=== PATIENT | male | born 1980 | race Caucasian/White ===

== ENCOUNTER 2021-03-01 20:08 | Emergency (ER) | payer BC, OTHER ==
[2021-03-01 20:32] VITALS: BP 156/97; PULSE 85
--- NOTE | 2021-03-01 21:07 | EDM.PDOC ---
ED HPI GENERAL MEDICAL PROBLEM - General Chief Complaint: Lower Extremity Injury/Pain Stated Complaint: LT KNEE PAIN Time Seen by Provider: 03/01/21 20:24 Source of Information: Reports: Patient, RN Notes Reviewed History Limitations: Reports: No Limitations - History of Present Illness INITIAL COMMENTS - FREE TEXT/NARRATIVE: Patient is a 40-year-old male who presents to the ER for the evaluation of his left knee pain/swelling. Notes that he was sitting on a fence, and he jumped down off of the fence 1 week ago, and his left knee kind of buckled underneath of him. He was seen at the [facility] after the accident, he had no imaging done of the knee, but they did provide him with an elastic knee sleeve, told him to try some conservative measures, and if things seem to worsen to go to the ER for evaluation. He does note that the swelling has gotten worse, he notes that walking on it at all is very painful. He has been trying Tylenol ibuprofen at home and nothing really seems to be helping much. He is denying any numbness or tingling distal to the injury or any pain further up from the injury. Patient denies any other sick-like symptoms, fever/chills, cough/shortness of breath, nausea/vomiting/diarrhea. Left Knee Pain Score (Numeric/FACES): 6 - Related Data Allergies Allergy/AdvReac Type Severity Reaction Status Date / Time No Known Allergies Allergy Verified 04/08/14 14:56 Home Meds: Home Meds Allopurinol [Zyloprim] 300 mg PO DAILY 03/01/21 [History] Hydrocodone/Acetaminophen [Hydrocodone-Acetamin 5-325 mg] 1 each PO Q6H PRN #12 tablet 03/01/21 [Rx] Propranolol [Inderal] 20 mg PO DAILY 03/01/21 [History] Past Medical History Cardiovascular History: Reports: Hypertension Musculoskeletal History: Reports: Back Pain, Chronic, Gout Neurological History: Reports: Migraines, Other (See Below) Other Neuro History: TBI-fractured skull Psychiatric History: Reports: PTSD Dermatologic History: Reports: Eczema Social & Family History - Tobacco Use Tobacco Use Status *Q: Current Every Day Tobacco User Years of Tobacco use: 26 Packs/Tins Daily: 1 - Caffeine Use Caffeine Use: Reports: Coffee, Tea - Recreational Drug Use Recreational Drug Use: Yes Other Recreational Drug Type: medical marijuan card Review of Systems - Review of Systems Review Of Systems: Comprehensive ROS is negative, except as noted in HPI. ED EXAM, GENERAL - Physical Exam Exam: See Below Exam Limited By: No Limitations General Appearance: Alert, WD/WN, No Apparent Distress Respiratory/Chest: No Respiratory Distress, Lungs Clear, Normal Breath Sounds, No Accessory Muscle Use, Chest Non-Tender Cardiovascular: Normal Peripheral Pulses, Regular Rate, Rhythm, No Edema Peripheral Pulses: 2+: Dorsalis Pedis (L), Dorsalis Pedis (R) Extremities: Normal Capillary Refill, Joint Swelling (left knee swelling, pt states that this hurts more on the lateral sides), Limited Range of Motion (of left knee d/t pain). No: Increased Warmth Neurological: Alert, Oriented, Normal Cognition, No Motor/Sensory Deficits Psychiatric: Normal Affect, Normal Mood Skin Exam: Warm, Dry, Intact, Normal Color, No Rash Course - Vital Signs Last Recorded V/S: Last Vital Signs Temp 96.6 F L 03/01/21 20:31 Pulse 85 03/01/21 20:31 Resp 20 03/01/21 20:31 BP 156/97 H 03/01/21 20:31 Pulse Ox 97 03/01/21 20:31 - Orders/Labs/Meds Orders: Active Orders 24 hr Category Date Time Status Knee 3V Lt [CR] Stat Exams 03/01/21 20:42 Taken DME for Discharge [COMM] Routine Oth 03/01/21 21:33 Ordered Meds: Medications Discontinued Medications Generic Name Dose Route Start Last Admin Trade Name Rosanna PRN Reason Stop Dose Admin Hydrocodone Bitart/Acetaminophen 2 tab 03/01/21 21:38 03/01/21 21:46 Acetaminophen/Hydrocodone 325-5 Mg Tab PO 03/01/21 21:39 2 tab ONETIME ONE Administration - Re-Assessments/Exams Free Text/Narrative Re-Assessment/Exam: 03/01/21 21:07 Patient presents to the ER for his left knee pain, we will go ahead and get x- rays for initial evaluation has he has not had those done yet. Plan is to probably send him home with a knee immobilizer and crutches and keep him nonweightbearing for the next few days, write for an outpatient MRI and [facility]. Patient will be provided with the knee immobilizer to prevent further injury and/or stabilize the injury. 03/01/21 21:34 X-rays demonstrate no acute bony injury or other abnormality, there is apparent soft tissue swelling. Patient will be placed in a knee immobilizer again to help prevent further injury and stabilize the injury Departure - Departure Time of Disposition: 21:08 Disposition: Home, Self-Care 01 Condition: Good Clinical Impression: Pain and swelling of left knee - Discharge Information *PRESCRIPTION DRUG MONITORING PROGRAM REVIEWED*: No *COPY OF PRESCRIPTION DRUG MONITORING REPORT IN PATIENT KAREN: No Prescriptions: Hydrocodone/Acetaminophen [Hydrocodone-Acetamin 5-325 mg] 1 each PO Q6H PRN #12 tablet PRN Reason: Pain Instructions: Knee Effusion, [id number] Referrals: Josefina Plaza MD [Primary Care Provider] - Forms: ED Department Discharge Additional Instructions: You have been evaluated in the ED for your left knee pain/swelling. Your x-ray demonstrated no acute fracture or other bony abnormality. Please use ice as tolerated to the affected area. Please try to elevate the affected area to relieve swelling. You have been provided with a brace, to prevent further injury and/or stabilize the injury you received today. You have also been provided with crutches today, so that you may stay nonweightbearing. You may take Tylenol 500 mg or ibuprofen 600mg q6 hrs for pain relief. Please do so until you have a tolerable level of pain with activity. Do not exceed 4000mg Tylenol or 3200mg ibuprofen in a 24 hour time period. You were given a prescription for a strong pain medication, hydrocodone/acetaminophen 5/325 mg, please take 1 tab every 6 hours as needed for pain not relieved by Tylenol or ibuprofen alone. Please note this medication does contain Tylenol in it, so do not take more than 4000 mg in a 24- hour time span. These medications can be addictive, so please take as few as possible to achieve adequate pain control. These meds can also be quite constipating, recommend that you increase your oral fluid intake and take a stool softener like MiraLAX while taking these medications. Do not drive while taking this medication. This medication [facility] electronically [facility]. An outpatient order for an MRI has been placed on your behalf our radiology department will call you to schedule this appointment. Please let the [facility] know, that an outpatient MRI has been ordered for you, so they can get this pre- approved. Please return to ED if your symptoms should change or worsen. Sepsis Event Note (ED) - Evaluation Sepsis Screening Result: No Definite Risk - Focused Exam Vital Signs: Vital Signs Temp Pulse Resp BP Pulse Ox 03/01/21 20:31 96.6 F L 85 20 156/97 H 97 - My Orders Last 24 Hours: My Active Orders 03/01/21 20:42 Knee 3V Lt [CR] Stat 03/01/21 21:33 DME for Discharge [COMM] Routine - Assessment/Plan Last 24 Hours: My Active Orders 03/01/21 20:42 Knee 3V Lt [CR] Stat 03/01/21 21:33 DME for Discharge [COMM] Routine
[2021-03-01] MEDS ORDERED: Acetaminophen/HYDROcodone 325-5 MG Tab PO ONE (21:38)
--- NOTE | 2021-03-03 10:45 | CR ---
Left knee: 3 views of left knee were obtained. Comparison: Prior knee exam of 04/17/16. Very slight lateral joint space narrowing is seen. Medial joint is fairly well preserved. Small joint effusion is seen. No acute fracture or other bony abnormality is identified. Impression: 1. Slight lateral joint space narrowing. 2. Joint effusion. Diagnostic code #2
== END 2021-03-01 22:08 | disposition home or self-care (01) ==
LOC: JD.ED 20:08
DX: M25.562 Pain in left knee (principal); M79.89 Other specified soft tissue disorders; I10 Essential (primary) hypertension; Z72.0 Tobacco use; Z79.899 Other long term (current) drug therapy
CPT/HCPCS: 73562; 99283; A9270

== ENCOUNTER 2025-06-06 17:57 | Inpatient (IN) | payer BC, OTHER ==
[2025-06-06] MEDS ORDERED: Sodium Chloride 0.9% 10 ML Syringe FLUSH PRN (18:10)
[2025-06-06 18:24] LABS: BASOPHILS ABSOLUTE AUTO 0.1 K/mm3 (0.0-0.2); BASOPHILS PERCENT AUTO 0.7 % (0.0-1.0); EOSINOPHILS ABSOLUTE AUTO 0.2 K/mm3 (0.0-0.4); EOSINOPHILS PERCENT AUTO 0.8 % (0.0-6.0); IMMATURE GRAN ABSOLUTE AUTO 0.11 K/mm3 (0.00-0.05); IMMATURE GRAN PERCENT AUTO 0.6 % (0.0-0.4); LYMPHOCYTES ABSOLUTE AUTO 1.4 K/mm3 (1.0-4.8); LYMPHOCYTES PERCENT AUTO 8.0 % (24.0-44.0); MEAN PLATELET VOLUME 12.1 fl (9.4-12.4); MONOCYTES ABSOLUTE AUTO 1.8 K/mm3 (0.0-0.8); MONOCYTES PERCENT AUTO 9.8 % (0.0-8.0); NEUTROPHILS ABSOLUTE AUTO 14.2 K/mm3 (1.8-7.7); NEUTROPHILS PERCENT AUTO 80.1 % (41.0-71.0); NRBC ABSOLUTE 0.00 (0.00-0.02); NRBC PERCENT 0.0 % (0.0-0.2); PLATELET COUNT,PLT 150 K/mm3 (150-400); RED BLOOD CELL COUNT 5.22 M/mm3 (4.52-5.90); WHITE BLOOD CELL COUNT,WBC 17.80 K/mm3 (3.9-11.3)
[2025-06-06 18:58] LABS: BLOOD UREA NITROGEN,BUN 9 mg/dL (7-18); CHLORIDE,CL 89 mEq/L (98-107); SODIUM,NA 126 mEq/L (136-145); TROPONIN I HIGH SENSITIVITY 6 pg/mL (<=76)
[2025-06-06 19:28] LABS: INR 1.04; PTT,PARTIAL THROMBOPLSTIN TIME 25.5 SECONDS (21.7-31.4)
[2025-06-06 19:28] LABS: A/G RATIO 0.9 (1-2); EST CRCL DRUG DOSING (CG) 81.79 mL/min; ESTIMATED GFR 86 mL/min (>60)
[2025-06-06 19:35] LABS: APPEARANCE,URINE CLEAR (Clear); GLUCOSE,URINE 2+ (Negative); OCCULT BLOOD,URINE TRACE-LYSED (Negative)
[2025-06-06 19:51] LABS: CARBON DIOXIDE,CO2 9 mEq/L (21-32)
[2025-06-06 19:54] LABS: BILIRUBIN TOTAL 1.8 mg/dL (0.2-1.0); GLUCOSE RANDOM 363 mg/dL (70-99); POTASSIUM,K 3.8 mEq/L (3.5-5.1)
[2025-06-06] MEDS: Ondansetron 4 MG/2 ML SDV IVPUSH ONE (20:01)
[2025-06-06 20:17] LABS: BASE EXCESS VENOUS -15.4 (-4.0-2.0); BICARBONATE,VENOUS 10.8 meq/L (22-26); O2 SATURATION VENOUS 46.6; PCO2 VENOUS 27.0 mmHg (41-51); PH,VENOUS 7.21 (7.30-7.40); PO2 VENOUS 36.0 mmHG (40-80)
[2025-06-06 20:38] LABS: EPITHELIAL CELLS,URINE 0-5 /hpf (0-5)
[2025-06-06 20:39] LABS: FINE GRANULAR CASTS,URINE 0-5 /lpf (0-5)
[2025-06-06] MEDS ORDERED: 50% Dextrose in Water 50 ML Syringe IVPUSH PRN (21:16)
[2025-06-06 22:33] LABS: BLOOD UREA NITROGEN,BUN 7 mg/dL (7-18); CARBON DIOXIDE,CO2 11 mEq/L (21-32); CHLORIDE,CL 95 mEq/L (98-107); EST CRCL DRUG DOSING (CG) 81.79 mL/min; ESTIMATED GFR 86 mL/min (>60); PHOSPHORUS 1.5 mg/dL (2.6-4.7); SODIUM,NA 128 mEq/L (136-145)
[2025-06-06 23:01] LABS: GLUCOSE RANDOM 375 mg/dL (70-99); POTASSIUM,K 3.8 mEq/L (3.5-5.1)
[2025-06-07 02:34] LABS: BLOOD UREA NITROGEN,BUN 5 mg/dL (7-18); CHLORIDE,CL 97 mEq/L (98-107); EST CRCL DRUG DOSING (CG) 89.97 mL/min; ESTIMATED GFR 96 mL/min (>60); PHOSPHORUS 1.3 mg/dL (2.6-4.7); SODIUM,NA 129 mEq/L (136-145)
[2025-06-07 02:37] LABS: CARBON DIOXIDE,CO2 8 mEq/L (21-32); GLUCOSE RANDOM 299 mg/dL (70-99); POTASSIUM,K 3.8 mEq/L (3.5-5.1)
[2025-06-07 04:49] LABS: BASOPHILS ABSOLUTE AUTO 0.1 K/mm3 (0.0-0.2); BASOPHILS PERCENT AUTO 0.5 % (0.0-1.0); EOSINOPHILS ABSOLUTE AUTO 0.1 K/mm3 (0.0-0.4); EOSINOPHILS PERCENT AUTO 0.7 % (0.0-6.0); IMMATURE GRAN ABSOLUTE AUTO 0.09 K/mm3 (0.00-0.05); IMMATURE GRAN PERCENT AUTO 0.7 % (0.0-0.4); LYMPHOCYTES ABSOLUTE AUTO 1.1 K/mm3 (1.0-4.8); LYMPHOCYTES PERCENT AUTO 8.4 % (24.0-44.0); MEAN PLATELET VOLUME 12.7 fl (9.4-12.4); MONOCYTES ABSOLUTE AUTO 1.3 K/mm3 (0.0-0.8); MONOCYTES PERCENT AUTO 9.7 % (0.0-8.0); NEUTROPHILS ABSOLUTE AUTO 10.6 K/mm3 (1.8-7.7); NEUTROPHILS PERCENT AUTO 80.0 % (41.0-71.0); NRBC ABSOLUTE 0.00 (0.00-0.02); NRBC PERCENT 0.0 % (0.0-0.2); PLATELET COUNT,PLT 110 K/mm3 (150-400); RED BLOOD CELL COUNT 4.48 M/mm3 (4.52-5.90); WHITE BLOOD CELL COUNT,WBC 13.21 K/mm3 (3.9-11.3)
[2025-06-07] MEDS: Magnesium Sulf/Wat 4 GM/50 mL 4 GM in Premix Bag 1 BAG IV ONE (07:57)
[2025-06-07 08:31] LABS: BLOOD UREA NITROGEN,BUN 5.0 mg/dL (7-18); CARBON DIOXIDE,CO2 11.0 mEq/L (21-32); CHLORIDE,CL 97.0 mEq/L (98-107); EST CRCL DRUG DOSING (CG) 81.79 mL/min; ESTIMATED GFR 86.0 mL/min (>60); PHOSPHORUS 1.4 mg/dL (2.6-4.7); SODIUM,NA 130.0 mEq/L (136-145)
[2025-06-07 08:44] LABS: CREATININE 1.1 mg/dL (0.7-1.3); GLUCOSE RANDOM 257.0 mg/dL (70-99); POTASSIUM,K 3.6 mEq/L (3.5-5.1)
[2025-06-07 09:36] LABS: CHOLESTEROL HDL 27 mg/dL (40-59); CHOLESTEROL LDL DIRECT 47 mg/dL (<100)
[2025-06-07 10:24] LABS: BLOOD UREA NITROGEN,BUN 4.0 mg/dL (7-18); CARBON DIOXIDE,CO2 12.0 mEq/L (21-32); CHLORIDE,CL 98.0 mEq/L (98-107); EST CRCL DRUG DOSING (CG) 81.79 mL/min; ESTIMATED GFR 86.0 mL/min (>60); PHOSPHORUS 1.1 mg/dL (2.6-4.7); SODIUM,NA 128.0 mEq/L (136-145)
[2025-06-07 10:33] LABS: CHOLESTEROL TOTAL 304 mg/dL (<200)
[2025-06-07 10:34] LABS: GLUCOSE RANDOM 251.0 mg/dL (70-99); POTASSIUM,K 3.5 mEq/L (3.5-5.1)
[2025-06-07 10:35] LABS: CREATININE 1.1 mg/dL (0.7-1.3)
[2025-06-07] MEDS: Sodium Chloride 0.9% 10 ML Syringe FLUSH ONE (11:12)
[2025-06-07] MEDS: Iopamidol 612 MG/ML 100 ML Bottle IVPUSH ONE (11:12)
[2025-06-07] MEDS: Iopamidol 612 MG/ML 30 ML SDV IVPUSH ONE (11:12)
[2025-06-07 12:41] LABS: BUPRENORPHINE SCREEN,URINE NEGATIVE (CUTOFF=10); METHADONE SCREEN, URINE NEGATIVE (CUT0FF=200); METHAMPHETAMINES SCREEN, URINE NEGATIVE (CUTOFF=500); OXYCODONE SCREEN,URINE NEGATIVE (CUT0FF=100); THC SCREEN,URINE 20 NG/ML PRESUMPTIVE POSITIVE (CUTOFF=50)
[2025-06-07 12:47] LABS: AMPHETAMINES SCREEN, URINE NEGATIVE (CUTOFF=500)
[2025-06-07] MEDS ORDERED: Naloxone 0.4 MG/ML SDV IVPUSH PRN (14:01)
[2025-06-07 15:00] LABS: BLOOD UREA NITROGEN,BUN 2.0 mg/dL (7-18); CARBON DIOXIDE,CO2 14.0 mEq/L (21-32); CHLORIDE,CL 98.0 mEq/L (98-107); CREATININE 1.0 mg/dL (0.7-1.3); EST CRCL DRUG DOSING (CG) 89.97 mL/min; ESTIMATED GFR 96.0 mL/min (>60); GLUCOSE RANDOM 230.0 mg/dL (70-99); PHOSPHORUS 0.9 mg/dL (2.6-4.7); POTASSIUM,K 3.1 mEq/L (3.5-5.1); SODIUM,NA 129.0 mEq/L (136-145)
[2025-06-07] MEDS ORDERED: Diphenhydramine/Lidocaine/MagAl/Simethicone 119 ML Bottle PO PRN (20:33)
[2025-06-07 20:34] LABS: BLOOD UREA NITROGEN,BUN 2.0 mg/dL (7-18); CARBON DIOXIDE,CO2 14.0 mEq/L (21-32); CHLORIDE,CL 98.0 mEq/L (98-107); CREATININE 1.1 mg/dL (0.7-1.3); EST CRCL DRUG DOSING (CG) 81.79 mL/min; ESTIMATED GFR 86.0 mL/min (>60); PHOSPHORUS 1.0 mg/dL (2.6-4.7); SODIUM,NA 131.0 mEq/L (136-145)
[2025-06-07 20:57] LABS: GLUCOSE RANDOM 222.0 mg/dL (70-99); POTASSIUM,K 3.1 mEq/L (3.5-5.1)
[2025-06-07] MEDS ORDERED: diphenhydrAMINE 12.5 MG, Alum Hydrox/Mag Hydrox/Simeth 30 ML, Lidocaine 2% 15 ML PO PRN (21:02)
[2025-06-07 22:49] LABS: BLOOD UREA NITROGEN,BUN 2.0 mg/dL (7-18); CARBON DIOXIDE,CO2 14.0 mEq/L (21-32); CHLORIDE,CL 99.0 mEq/L (98-107); CREATININE 1.0 mg/dL (0.7-1.3); EST CRCL DRUG DOSING (CG) 89.97 mL/min; ESTIMATED GFR 96.0 mL/min (>60); PHOSPHORUS 1.3 mg/dL (2.6-4.7); SODIUM,NA 131.0 mEq/L (136-145)
[2025-06-07] MEDS: diphenhydrAMINE 12.5 MG, Alum Hydrox/Mag Hydrox/Simeth 30 ML, Lidocaine 2% 15 ML PO PRN (23:05)
[2025-06-07 23:13] LABS: GLUCOSE RANDOM 237.0 mg/dL (70-99); POTASSIUM,K 3.3 mEq/L (3.5-5.1)
[2025-06-08 02:44] LABS: BLOOD UREA NITROGEN,BUN 3.0 mg/dL (7-18); CARBON DIOXIDE,CO2 12.0 mEq/L (21-32); CHLORIDE,CL 99.0 mEq/L (98-107); CREATININE 1.0 mg/dL (0.7-1.3); EST CRCL DRUG DOSING (CG) 89.97 mL/min; ESTIMATED GFR 96.0 mL/min (>60); GLUCOSE RANDOM 246.0 mg/dL (70-99); PHOSPHORUS 1.1 mg/dL (2.6-4.7); SODIUM,NA 130.0 mEq/L (136-145)
[2025-06-08 02:49] LABS: POTASSIUM,K 3.5 mEq/L (3.5-5.1)
[2025-06-08 04:15] LABS: BASOPHILS ABSOLUTE AUTO 0.0 K/mm3 (0.0-0.2); BASOPHILS PERCENT AUTO 0.4 % (0.0-1.0); EOSINOPHILS ABSOLUTE AUTO 0.1 K/mm3 (0.0-0.4); EOSINOPHILS PERCENT AUTO 1.1 % (0.0-6.0); IMMATURE GRAN ABSOLUTE AUTO 0.09 K/mm3 (0.00-0.05); IMMATURE GRAN PERCENT AUTO 0.9 % (0.0-0.4); LYMPHOCYTES ABSOLUTE AUTO 0.9 K/mm3 (1.0-4.8); LYMPHOCYTES PERCENT AUTO 8.8 % (24.0-44.0); MEAN PLATELET VOLUME 12.7 fl (9.4-12.4); MONOCYTES ABSOLUTE AUTO 1.2 K/mm3 (0.0-0.8); MONOCYTES PERCENT AUTO 11.3 % (0.0-8.0); NEUTROPHILS ABSOLUTE AUTO 8.1 K/mm3 (1.8-7.7); NEUTROPHILS PERCENT AUTO 77.5 % (41.0-71.0); NRBC ABSOLUTE 0.00 (0.00-0.02); NRBC PERCENT 0.0 % (0.0-0.2); PLATELET COUNT,PLT 95 K/mm3 (150-400); RED BLOOD CELL COUNT 4.02 M/mm3 (4.52-5.90); WHITE BLOOD CELL COUNT,WBC 10.51 K/mm3 (3.9-11.3)
[2025-06-08 06:40] LABS: BLOOD UREA NITROGEN,BUN 2.0 mg/dL (7-18); CARBON DIOXIDE,CO2 18.0 mEq/L (21-32); CHLORIDE,CL 100.0 mEq/L (98-107); CREATININE 1.1 mg/dL (0.7-1.3); EST CRCL DRUG DOSING (CG) 81.79 mL/min; ESTIMATED GFR 86.0 mL/min (>60); GLUCOSE RANDOM 223.0 mg/dL (70-99); PHOSPHORUS 1.1 mg/dL (2.6-4.7); SODIUM,NA 132.0 mEq/L (136-145)
[2025-06-08 06:42] LABS: POTASSIUM,K 3.6 mEq/L (3.5-5.1)
[2025-06-08] MEDS: Potassium Phosphates 30 MMOLE in Sodium Chloride 0.9% 500 ML IV ONE (09:04)
[2025-06-08 10:32] LABS: BLOOD UREA NITROGEN,BUN 2.0 mg/dL (7-18); CARBON DIOXIDE,CO2 18.0 mEq/L (21-32); CHLORIDE,CL 101.0 mEq/L (98-107); CREATININE 0.9 mg/dL (0.7-1.3); EST CRCL DRUG DOSING (CG) 99.97 mL/min; ESTIMATED GFR 109.0 mL/min (>60); GLUCOSE RANDOM 217.0 mg/dL (70-99); SODIUM,NA 131.0 mEq/L (136-145)
[2025-06-08 10:33] LABS: POTASSIUM,K 3.7 mEq/L (3.5-5.1)
[2025-06-08] MEDS: Ondansetron 4 MG/2 ML SDV IV PRN (13:13)
[2025-06-08 14:19] LABS: BASE EXCESS VENOUS -3.4 (-4.0-2.0); BICARBONATE,VENOUS 19.2 meq/L (22-26); O2 SATURATION VENOUS 96.8; PCO2 VENOUS 27.0 mmHg (41-51); PH,VENOUS 7.46 (7.30-7.40); PO2 VENOUS 112.0 mmHG (40-80)
[2025-06-08 14:31] LABS: BLOOD UREA NITROGEN,BUN 2.0 mg/dL (7-18); CARBON DIOXIDE,CO2 19.0 mEq/L (21-32); CHLORIDE,CL 101.0 mEq/L (98-107); CREATININE 0.9 mg/dL (0.7-1.3); EST CRCL DRUG DOSING (CG) 99.97 mL/min; ESTIMATED GFR 109.0 mL/min (>60); GLUCOSE RANDOM 200.0 mg/dL (70-99); SODIUM,NA 133.0 mEq/L (136-145)
[2025-06-08 14:36] LABS: POTASSIUM,K 3.3 mEq/L (3.5-5.1)
[2025-06-08] MEDS: Potassium Chloride 20 MEQ Tab.ER PO ONE (14:44)
[2025-06-08 18:38] LABS: BLOOD UREA NITROGEN,BUN 2.0 mg/dL (7-18); CARBON DIOXIDE,CO2 18.0 mEq/L (21-32); CHLORIDE,CL 99.0 mEq/L (98-107); CREATININE 0.9 mg/dL (0.7-1.3); EST CRCL DRUG DOSING (CG) 99.97 mL/min; ESTIMATED GFR 109.0 mL/min (>60); GLUCOSE RANDOM 203.0 mg/dL (70-99); PHOSPHORUS 1.3 mg/dL (2.6-4.7); POTASSIUM,K 3.7 mEq/L (3.5-5.1); SODIUM,NA 132.0 mEq/L (136-145)
[2025-06-08] MEDS: Magnesium Sulf/Wat 4 GM/50 mL 4 GM in Premix Bag 1 BAG IV ONE (19:35)
[2025-06-08 22:19] LABS: BLOOD UREA NITROGEN,BUN 1.0 mg/dL (7-18); CARBON DIOXIDE,CO2 19.0 mEq/L (21-32); CHLORIDE,CL 99.0 mEq/L (98-107); CREATININE 0.9 mg/dL (0.7-1.3); EST CRCL DRUG DOSING (CG) 99.97 mL/min; ESTIMATED GFR 109.0 mL/min (>60); GLUCOSE RANDOM 206.0 mg/dL (70-99); PHOSPHORUS 1.2 mg/dL (2.6-4.7); POTASSIUM,K 3.4 mEq/L (3.5-5.1); SODIUM,NA 132.0 mEq/L (136-145)
[2025-06-09 02:19] LABS: BLOOD UREA NITROGEN,BUN 1.0 mg/dL (7-18); CARBON DIOXIDE,CO2 22.0 mEq/L (21-32); CHLORIDE,CL 100.0 mEq/L (98-107); CREATININE 0.9 mg/dL (0.7-1.3); EST CRCL DRUG DOSING (CG) 99.97 mL/min; ESTIMATED GFR 109.0 mL/min (>60); GLUCOSE RANDOM 203.0 mg/dL (70-99); PHOSPHORUS 1.6 mg/dL (2.6-4.7); POTASSIUM,K 3.5 mEq/L (3.5-5.1); SODIUM,NA 133.0 mEq/L (136-145)
[2025-06-09 04:13] LABS: BASOPHILS ABSOLUTE AUTO 0.0 K/mm3 (0.0-0.2); BASOPHILS PERCENT AUTO 0.4 % (0.0-1.0); EOSINOPHILS ABSOLUTE AUTO 0.2 K/mm3 (0.0-0.4); EOSINOPHILS PERCENT AUTO 2.6 % (0.0-6.0); IMMATURE GRAN ABSOLUTE AUTO 0.06 K/mm3 (0.00-0.05); IMMATURE GRAN PERCENT AUTO 0.9 % (0.0-0.4); LYMPHOCYTES ABSOLUTE AUTO 0.9 K/mm3 (1.0-4.8); LYMPHOCYTES PERCENT AUTO 13.3 % (24.0-44.0); MEAN PLATELET VOLUME 12.3 fl (9.4-12.4); MONOCYTES ABSOLUTE AUTO 0.9 K/mm3 (0.0-0.8); MONOCYTES PERCENT AUTO 12.7 % (0.0-8.0); NEUTROPHILS ABSOLUTE AUTO 4.8 K/mm3 (1.8-7.7); NEUTROPHILS PERCENT AUTO 70.1 % (41.0-71.0); NRBC ABSOLUTE 0.00 (0.00-0.02); NRBC PERCENT 0.0 % (0.0-0.2); PLATELET COUNT,PLT 103 K/mm3 (150-400); RED BLOOD CELL COUNT 3.99 M/mm3 (4.52-5.90); WHITE BLOOD CELL COUNT,WBC 6.91 K/mm3 (3.9-11.3)
[2025-06-09 06:24] LABS: BLOOD UREA NITROGEN,BUN 2.0 mg/dL (7-18); CARBON DIOXIDE,CO2 23.0 mEq/L (21-32); CHLORIDE,CL 100.0 mEq/L (98-107); CREATININE 0.8 mg/dL (0.7-1.3); EST CRCL DRUG DOSING (CG) 112.46 mL/min; ESTIMATED GFR 113.0 mL/min (>60); GLUCOSE RANDOM 205.0 mg/dL (70-99); PHOSPHORUS 2.0 mg/dL (2.6-4.7); POTASSIUM,K 3.5 mEq/L (3.5-5.1); SODIUM,NA 135.0 mEq/L (136-145)
[2025-06-09] MEDS: Insulin Glargine,Human Rec. Analog 100 Units/ML 3 ML Pen SUBCUT ONE (10:30)
[2025-06-09 10:52] LABS: BLOOD UREA NITROGEN,BUN 2.0 mg/dL (7-18); CARBON DIOXIDE,CO2 24.0 mEq/L (21-32); CHLORIDE,CL 98.0 mEq/L (98-107); CREATININE 0.8 mg/dL (0.7-1.3); EST CRCL DRUG DOSING (CG) 112.46 mL/min; ESTIMATED GFR 113.0 mL/min (>60); GLUCOSE RANDOM 207.0 mg/dL (70-99); POTASSIUM,K 3.5 mEq/L (3.5-5.1); SODIUM,NA 134.0 mEq/L (136-145)
[2025-06-09] MEDS: Insulin Lispro 100 Unit/ML 3 ML KwikPen SUBCUT SCH (12:39)
[2025-06-09 15:27] LABS: BLOOD UREA NITROGEN,BUN 2.0 mg/dL (7-18); CARBON DIOXIDE,CO2 22.0 mEq/L (21-32); CHLORIDE,CL 96.0 mEq/L (98-107); CREATININE 0.9 mg/dL (0.7-1.3); EST CRCL DRUG DOSING (CG) 99.97 mL/min; ESTIMATED GFR 109.0 mL/min (>60); GLUCOSE RANDOM 225.0 mg/dL (70-99); POTASSIUM,K 3.4 mEq/L (3.5-5.1); SODIUM,NA 133.0 mEq/L (136-145)
[2025-06-09 18:28] VITALS: BP 138/75; PULSE 98
== END 2025-06-09 16:55 | disposition home or self-care (01) | DRG 637 ==
LOC: JD.ED 17:57 → JD.ICU 20:34
PROVIDERS: ADMIT Family Medicine; ATTEND Family Medicine
DX: E13.10 Other specified diabetes mellitus with ketoacidosis without coma (principal); E11.10 Type 2 diabetes mellitus with ketoacidosis without coma; E78.00 Pure hypercholesterolemia, unspecified; F17.210 Nicotine dependence, cigarettes, uncomplicated; K85.90 Acute pancreatitis without necrosis or infection, unspecified; E87.1 Hypo-osmolality and hyponatremia; I10 Essential (primary) hypertension; G89.29 Other chronic pain; M54.9 Dorsalgia, unspecified; G43.909 Migraine, unspecified, not intractable, without status migrainosus; F43.10 Post-traumatic stress disorder, unspecified; F17.200 Nicotine dependence, unspecified, uncomplicated; E78.2 Mixed hyperlipidemia; E86.0 Dehydration; E87.8 Other disorders of electrolyte and fluid balance, not elsewhere classified; E83.39 Other disorders of phosphorus metabolism; E83.42 Hypomagnesemia; K76.0 Fatty (change of) liver, not elsewhere classified; Z79.899 Other long term (current) drug therapy
CPT/HCPCS: 36415; 71045; 80053; 81001; 82010; 82803; 82947; 83036; 83880; 84484; 85025; 85610; 85730; 93005; 96361; 96374; 99285; J2405; J7030 ×2; 71260; 71260-26; 74177; 74177-26; 80048; 80061; 80306; 82800; 83690; 83735; 84100; 84132; 93010; A9270-GY; J1171; J1650; J1815-GY; J2470; J2765; J3475; J3480; J3490; J7040; Q9967; S5010